=== PATIENT | male | born 1945 | race Caucasian/White ===

== ENCOUNTER 2018-04-12 18:53 | Outpatient (REF) | payer MEDICARE, OTHER, SELFPAY ==
[2018-04-12 19:38] LABS: HCT 39.1 % (40.0-50.0); HGB 13.8 g/dL (13.5-17.5); Mean Corp. HGB Concentration 35.3 g/dL (32.0-36.0); Mean Corpuscular Hemoglobin 33.2 pg (27.0-33.0); Mean Platelet Volume 12.1 fL (8.0-11.0); Platelet Count 107 x1000/uL (130-400); RBC 4.16 m/cumm (4.50-6.00); RBC Distribution Width 12.6 % (11.8-14.1); White Blood Cell Count 13.01 k/cumm (4.4-10.8)
[2018-04-12 19:58] LABS: Anion Gap 6.7 mmol/L (3-11); BUN 14 mg/dL (7-18); CO2 30.3 mmol/L (21.0-32.0); CREATININE 1.28 mg/dL (0.70-1.30); Calcium 8.6 mg/dL (8.5-10.1); Chloride 100 mmol/L (98-107); Estimated GFR 55.24 (mL/min/1.73m2); Glucose 269 mg/dL (70-100); Potassium 4.5 mmol/L (3.5-5.1); Sodium 137 mmol/L (136-145); TSH 0.93 uIU/mL (0.358-3.74)
== END 2018-04-12 19:13 ==
LOC: NCHCN 18:53
PROVIDERS: PCP Physician Assistant; Visit Provider Internal Medicine
DX: E11.8 Type 2 diabetes mellitus with unspecified complications (principal); F33.2 Major depressive disorder, recurrent severe without psychotic features; G89.29 Other chronic pain; Z79.4 Long term (current) use of insulin; Z79.899 Other long term (current) drug therapy
CPT/HCPCS: 80048; 85027; 84443

== ENCOUNTER 2018-08-27 13:21 | Outpatient (CLI) | payer MEDICARE, OTHER, SELFPAY ==
[2018-08-27 14:07] LABS: Abs Immature Grans 0.05 k/cumm (0.0-0.09); Absolute Basophil Count 0.02 k/cumm (0.0-0.2); Absolute Eosinophil Count 0.14 k/cumm (0.0-0.7); Absolute Monocyte Count 0.82 k/cumm (0.11-0.7); Absolute Neutrophil Count 3.09 k/cumm (1.2-6.7); Basophils % 0.4; Eosinophils % 2.5; HCT 28.9 % (40.0-50.0); Immature Grans % 0.9; Lymphocytes % 25.4; Mean Corp. HGB Concentration 31.5 g/dL (32.0-36.0); Mean Corpuscular Hemoglobin 27.2 pg (27.0-33.0); Mean Corpuscular Volume 86.5 fL (80-95); Mean Platelet Volume 10.7 fL (8.0-11.0); Monocytes % 14.9; Neutrophils % 55.9; Platelet Count 154 x1000/uL (130-400); RBC 3.34 m/cumm (4.50-6.00); RBC Distribution Width 14.7 % (11.8-14.1); White Blood Cell Count 5.52 k/cumm (4.4-10.8)
[2018-08-27 14:10] LABS: HGB 9.1 g/dL (13.5-17.5)
[2018-08-27 14:13] LABS: ALT 22 U/L (12-78); AST 25 U/L (15-37); Albumin 2.7 g/dL (3.4-5.0); Alkaline Phosphatase 136 U/L (46-116); Anion Gap 10.9 mmol/L (3-11); BUN 20 mg/dL (7-18); Bilirubin, Total 0.3 mg/dL (0.2-1.0); CO2 25.1 mmol/L (21.0-32.0); Calcium 8.2 mg/dL (8.5-10.1); Chloride 103 mmol/L (98-107); Glucose 280 mg/dL (70-100); Sodium 139 mmol/L (136-145); Total Protein 6.1 g/dL (6.4-8.2)
== END 2018-08-27 13:41 ==
PROVIDERS: PCP Internal Medicine; Visit Provider Nurse Practitioner Adult Health
DX: C16.9 Malignant neoplasm of stomach, unspecified (principal)
CPT/HCPCS: 36415; 80053; 85025

== ENCOUNTER 2018-09-03 10:15 | Outpatient (CLI) | payer MEDICARE, OTHER, SELFPAY ==
[2018-09-03 10:38] LABS: Abs Immature Grans 0.02 k/cumm (0.0-0.09); Absolute Basophil Count 0.03 k/cumm (0.0-0.2); Absolute Eosinophil Count 0.28 k/cumm (0.0-0.7); Absolute Lymphocyte Count 1.38 k/cumm (1.2-3.4); Absolute Monocyte Count 0.88 k/cumm (0.11-0.7); Basophils % 0.3; Eosinophils % 2.8; HGB 9.7 g/dL (13.5-17.5); Immature Grans % 0.2; Lymphocytes % 13.7; Mean Corp. HGB Concentration 32.3 g/dL (32.0-36.0); Mean Corpuscular Hemoglobin 27.2 pg (27.0-33.0); Mean Platelet Volume 11.1 fL (8.0-11.0); Monocytes % 8.7; Neutrophils % 74.3; Platelet Count 148 x1000/uL (130-400); RBC 3.57 m/cumm (4.50-6.00); RBC Distribution Width 15.1 % (11.8-14.1); White Blood Cell Count 10.09 k/cumm (4.4-10.8)
[2018-09-03 10:54] LABS: ALT 17 U/L (12-78); AST 22 U/L (15-37); Albumin 2.9 g/dL (3.4-5.0); Alkaline Phosphatase 127 U/L (46-116); Anion Gap 9.1 mmol/L (3-11); BUN 18 mg/dL (7-18); Bilirubin, Total 0.4 mg/dL (0.2-1.0); CO2 26.9 mmol/L (21.0-32.0); CREATININE 0.93 mg/dL (0.70-1.30); Calcium 8.8 mg/dL (8.5-10.1); Chloride 102 mmol/L (98-107); Glucose 234 mg/dL (70-100); Potassium 4.2 mmol/L (3.5-5.1); Sodium 138 mmol/L (136-145); Total Protein 6.7 g/dL (6.4-8.2)
== END 2018-09-03 10:35 ==
PROVIDERS: PCP Internal Medicine; Visit Provider Internal Medicine Hematology & Oncology
DX: C16.9 Malignant neoplasm of stomach, unspecified (principal)
CPT/HCPCS: 36415; 80053; 85025